=== PATIENT | female | born 1990 | race Two or more races ===

== ENCOUNTER 2024-09-16 21:11 | Inpatient (IN) | payer OTHER ==
[~2024-09-16] VITALS: Ht 152.4 cm; Wt 65.8 kg
[2024-09-16] MEDS ORDERED: VANCOMYCIN HCL 1,000 MG VIAL ONE (23:38)
[2024-09-16] MEDS ORDERED: MORPHINE SULFATE 4 MG/ML VIAL IV PRN (23:45)
[2024-09-16] MEDS ORDERED: VANCOMYCIN HCL 1,000 MG VIAL IV ONE (23:45)
[2024-09-16] MEDS ORDERED: RINGERS SOLUTION,LACTATED 1,000 ML IV SCH (23:45)
[2024-09-17] MEDS ORDERED: CEFTRIAXONE SODIUM 2,000 MG in 0.9 % SODIUM CHLORIDE 100 ML IV SCH (00:28)
[2024-09-17] MEDS ORDERED: KETOROLAC TROMETHAMINE 15 MG VIAL IU PRN (00:30)
[2024-09-17] MEDS ORDERED: 0.9 % SODIUM CHLORIDE 1,000 ML IV SCH (00:30)
[2024-09-17] MEDS ORDERED: ACETAMINOPHEN 500 MG GEL..CAP PO PRN (00:30)
[2024-09-17] MEDS ORDERED: KETOROLAC TROMETHAMINE 15 MG VIAL IV ONE (00:30)
[2024-09-17] MEDS ORDERED: KETOROLAC TROMETHAMINE 30 MG VIAL ONE (01:44)
[2024-09-17 01:55] LABS: PH,URINE 5.5 (5.0-8.0); URINE APPEARANCE Clear; URINE BILIRRUBIN Negative (NEGATIVE); URINE BLOOD Negative; URINE COLOR Yellow; URINE GLUCOSE Negative (NEGATIVE); URINE KETONE 15 (NEGATIVE); URINE LEUKOCYTE Negative; URINE NITRATE Negative; URINE PROTEIN Negative (NEGATIVE); URINE UROBILINOGEN 0.2 E.U./dl
[2024-09-17 02:00] LABS: URINE BACTERIA 6.1 uL (0.0-1933); URINE EPITHELIAL CELLS 7.4 uL (0.0-38.8); URINE RBC 2.3 uL (0.0-20.8); URINE WBC 3.7 uL (0.0-23.2)
[2024-09-17 02:02] LABS: HEMATOCRIT 36.6 % (36.0-45.00); HEMOGLOBIN 12.4 g/dL (12.0-15.00); MEAN CELL VOLUME 91.7 fL (80.00-100.00); MEAN CORPUSCULAR HGB CONC 33.8 g/dl (32.0-36.0); PLATELET COUNT 333 K/uL (150-450); RED BLOOD COUNT 3.99 M/uL (4.00-6.00); RED CELL DISTRIBUTION WIDTH 12.4 % (11.5-14.5)
[2024-09-17 02:14] LABS: INR 1.03; PARTIAL THROMBOPLASTIN TIME 33.4 SECONDS (22.0-34.0); PROTHROMBIN TIME 11.2 SECONDS (9.0-11.5)
[2024-09-17 02:15] LABS: ALBUMIN 4.1 gm/dL (3.4-5.0); BILIRUBIN TOTAL 0.27 mg/dL (0.3-1.2); CALCIUM 9.7 mg/dL (8.5-10.1); CREATININE SERUM 0.88 mg/dL (0.55-1.02); GFR 73.12; POTASSIUM 3.41 mEq/L (3.5-5.1); TOTAL PROTEIN 8.1 gm/dL (6.4-8.2)
[2024-09-17 02:21] LABS: ERYTHROCYTE SEDIMENTATION RATE 51 mm/hr
[2024-09-17 02:25] LABS: C-REACTIVE PROTEIN 2.02 MG/DL (0.00-0.29)
[2024-09-17 03:52] VITALS: BP 103/62; O2SAT 98
[2024-09-17] MEDS ORDERED: LACTOBACILLUS ACIDOPHILUS 1 CAP CAP PO SCH (09:00)
[2024-09-17] MEDS ORDERED: FAMOTIDINE/PF 20 MG in 0.9 % SODIUM CHLORIDE 8 ML IV PUSH SCH ×2 (09:00→21:00)
[2024-09-17] MEDS ORDERED: VANCOMYCIN HCL 1,000 MG VIAL IV SCH ×3 (09:00→21:00)
[2024-09-17 09:22] VITALS: BP 129/78; O2SAT 100
[2024-09-17] MEDS ORDERED: ALPRAzolam 0.5 MG TABLET PO ONE (17:30)
[2024-09-17] MEDS ORDERED: PIPERACILLIN/TAZOBACTAM SODIUM 3.375 GM in DEXTROSE 5 % IN WATER 100 ML IV SCH (18:00)
[2024-09-17] MEDS ORDERED: KETOROLAC TROMETHAMINE 30 MG VIAL IV PRN (19:00)
[2024-09-17] MEDS ORDERED: MORPHINE SULFATE 4 MG/ML CARTRIDGE IV PRN (19:00)
[2024-09-17 19:13] VITALS: BP 127/83
[2024-09-17 19:15] VITALS: BP 127/83
[2024-09-18 02:38] VITALS: BP 85/42
[2024-09-18 08:25] VITALS: BP 112/69
[2024-09-18 18:25] VITALS: BP 107/65; O2SAT 100
[2024-09-18] MEDS ORDERED: FAMOTIDINE/PF 20 MG/2 ML VIAL ONE (22:16)
[2024-09-19 00:25] VITALS: BP 124/84; O2SAT 100
[2024-09-19] MEDS ORDERED: ALPRAzolam 1 MG TABLET PO STA (00:32)
[2024-09-19] MEDS ORDERED: ALPRAzolam 1 MG TABLET PO SCH (00:32)
[2024-09-19 05:54] LABS: ANION GAP 8 (10.0-20.0); BLOOD UREA NITROGEN 8 mg/dL (7-18); BUN CREA RATIO 14 (7.0-25.0); CALCIUM 8.8 mg/dL (8.5-10.1); CARBON DIOXIDE 27 mEq/L (21-32); CHLORIDE 110 mmol/L (98-107); CREATININE SERUM 0.56 mg/dL (0.55-1.02); GFR 123.19; GLUCOSE FASTING 110 mg/dL (65-100); OSMOLALITY SERUM 280 MOSM/KG (275-295); PHOSPHOROUS 3.4 mg/dL (2.5-4.9); POTASSIUM 4.06 mEq/L (3.5-5.1); SODIUM 141 mmol/L (136-145)
[2024-09-19 05:55] LABS: ALKALINE PHOSPHATASE 82 U/L (50-136); ALT/SGPT 20 U/L (12-78); AST/SGOT 16 U/L (15-37); BILIRUBIN TOTAL < 0.10 mg/dL (0.3-1.2); C-REACTIVE PROTEIN 2.43 MG/DL (0.00-0.29); GLOBULINA 3.1 G/DL (2.4-3.5); TOTAL PROTEIN 6.1 gm/dL (6.4-8.2)
[2024-09-19 06:18] LABS: HEMATOCRIT 32.5 % (36.0-45.00); HEMOGLOBIN 11.2 g/dL (12.0-15.00); MEAN CELL VOLUME 91.3 fL (80.00-100.00); MEAN CORPUSCULAR HEMOGLOBIN 31.4 pg (27.00-32.0); MEAN CORPUSCULAR HGB CONC 34.4 g/dl (32.0-36.0); PLATELET COUNT 296 K/uL (150-450); RED BLOOD COUNT 3.55 M/uL (4.00-6.00); RED CELL DISTRIBUTION WIDTH 12.2 % (11.5-14.5)
[2024-09-19] MEDS ORDERED: LIDOCAINE HCL 1% 10ML VIAL PERCUT ONE (12:00)
[2024-09-19 14:47] VITALS: BP 110/73
[2024-09-19 16:50] VITALS: BP 108/70; O2SAT 100
[2024-09-20 01:05] VITALS: BP 112/71; O2SAT 99
[2024-09-20] MEDS ORDERED: CHLORHEXIDINE GLUCONATE 120 ML BOTTLE TOP SCH (17:00)
[2024-09-20] MEDS ORDERED: MUPIROCIN 22 GM OINT..GM TUBE NASAL SCH (17:00)
[2024-09-20 17:24] VITALS: BP 159/90
[2024-09-20] MEDS ORDERED: VANCOMYCIN HCL 5 MG/ML REDILUIDO IV SCH (21:00)
[2024-09-20] MEDS ORDERED: FAMOtidine 20 MG TABLET PO SCH (21:00)
[2024-09-20] MEDS ORDERED: ALPRAzolam 1 MG TABLET PO SCH (22:15)
[2024-09-21 02:19] VITALS: BP 100/53
[2024-09-21 09:04] VITALS: BP 117/74; O2SAT 99
== END 2024-09-21 15:52 | disposition home or self-care (01) | DRG 601 ==
LOC: ER 21:13 → MEDJ 09-17 00:26 → MEDI 09-17 00:26 → MEDJ 09-17 18:52
PROVIDERS: General Practice; Internal Medicine Infectious Disease; ADMIT Internal Medicine; ATTEND Internal Medicine
PROC: BW24ZZZ Computerized Tomography (CT Scan) of Chest and Abdomen (ICD-10-PCS; principal; 2024-09-17)
PROC: BH41ZZZ Ultrasonography of Left Breast (ICD-10-PCS; 2024-09-17)
PROC: 0H9U3ZZ Drainage of Left Breast, Percutaneous Approach (ICD-10-PCS; 2024-09-19)
DX: N61.1 Abscess of the breast and nipple (principal); F41.0 Panic disorder [episodic paroxysmal anxiety]; F43.22 Adjustment disorder with anxiety; B95.62 Methicillin resistant Staphylococcus aureus infection as the cause of diseases classified elsewhere